=== PATIENT | female | born 1965 | race Caucasian/White ===

== ENCOUNTER 2018-12-13 08:48 | Day surgery (SDC) | payer BC ==
[2018-12-13] VITALS (10 sets, daily range): BP systolic 86–122; BP diastolic 54–66; PULSE 52–75; RESP 11–20
[~2018-12-13] VITALS: Ht 152.4 cm; Wt 79.0 kg
[~2018-12-13 08:48] MED LIST: ACETAMINOPHEN 500 MG TAB PO ONE; CEFAZOLIN 1 GM INJ ONE; PROPOFOL 200 MG INJ ONE; SOD CHLORIDE 0.9% 1,000 ML IV SCH
[2018-12-13] MEDS ORDERED: METF500T24 PO (09:42)
[2018-12-13] MEDS ORDERED: ERGO500013 PO (09:43)
[2018-12-13] MEDS ORDERED: CYAN100T PO (09:43)
--- NOTE | 2018-12-13 10:42 | PREAC ---
Date/Time of Note Date/Time of Note DATE: 12/13/18 TIME: 10:41 Anesthesia Eval and Record Evaluation Time Pre-Procedure Interview DATE: 12/13/18 TIME: 10:41 Age 52 Sex female NPO: 8 hrs Preoperative diagnosis R pretibial mass Planned procedure R mass removal pretibial Past Medical History Past Medical History: Includes Endo: Diabetes GI: Morbid obesity Surgery & Anesthesia Issues No known issue Meds Anticoagulation: No Beta Susi within 24 hr: No Reason Beta Susi not given: Pt. not on B-Susi Reported Medications Cyanocobalamin* (Vitamin B12*) 100 Mcg Tab, 100 MCG PO DAILY, TAB 12/13/18 Ergocalciferol (Vitamin D2) (VITAMIN D2) 50,000 Unit Capsule, [address] UNIT PO EVERY SUNDAY, CAP 12/13/18 Metformin Hcl* (Metformin Hcl*) 500 Mg Tablet, 500 MG PO AC LUNCH, #90 TAB 12/13/18 Current Medications Sodium Chloride 1,000 ml @ 75 mls/hr [id number] IV ; Start 12/13/18 at 07:00 Meds reviewed: Yes Allergies Coded Allergies: No Known Allergies (Verified Allergy, Unknown, 12/13/18) Allergies Reviewed: Yes Labs/Studies Labs Reviewed: Reviewed by anesthesiologist test: Negative Studies: ECG Pre-procedure Exam Last vitals Vital Signs Date Temp Pulse Resp B/P (MAP) Pulse Ox O2 O2 Flow FiO2 Time Delivery Rate 12/13/18 98.0 56 18 122/66 99 Room Air 10:15 (84) Airway: Adequate mouth opening, Adequate thyromental dist Mallampati: Mallampati II Teeth: Normal Lung: Normal Heart: Normal ASA Physical Status ASA physical status: 2 Emergency: None Planned Anesthetic General/MAC: Mask, ETT, MAC Pre-operative Attestations Prior to commencing anesthesia and surgery, the patient was re-evaluated, there was verification of: *The patient's identity *The results of appropriate recent lab work and preoperative vital signs *The above evaluation not changing prior to induction *Anesthetic plan, risk benefits, alternative and complications discussed with patient/family; questions answered; patient/family understands, accepts and wishes to proceed. JERONIMO SMITH Dec 13, 2018 10:42
[2018-12-13] MEDS ORDERED: MIDAZOLAM 1 MG/ML 2 ML INJ ONE (10:57)
[2018-12-13] MEDS ORDERED: DIPHENHYDRAMINE 50 MG INJ IV PRN (11:00)
[2018-12-13] MEDS ORDERED: FENTAnyl 50 MCG/ML VIAL IV PRN ×2 (11:00)
[2018-12-13] MEDS ORDERED: METOCLOPRAMIDE 10 MG INJ IV PRN (11:00)
[2018-12-13] MEDS ORDERED: ALBUTEROL 0.083% (NEB) 2.5 MG/3 ML AMP HHN PRN (11:00)
[2018-12-13] MEDS ORDERED: ONDANSETRON 4 MG INJ IV PRN (11:00)
[2018-12-13] MEDS ORDERED: HYDROmorphONE 1 MG/5 ML IV SYRINGE IV PRN ×3 (11:00)
[2018-12-13] MEDS ORDERED: MEPERIDINE 25 MG INJ IV PRN (11:00)
[2018-12-13] MEDS ORDERED: LIDOCAINE 100 MG SYRINGE ONE (11:01)
[2018-12-13] MEDS ORDERED: METOCLOPRAMIDE 10 MG INJ ONE (11:01)
[2018-12-13] MEDS ORDERED: BUPIVACAINE 0.5%/EPI (SDV) 30 ML INJ ONE (11:05)
--- NOTE | 2018-12-13 11:53 | SIPON ---
Date/Time of Note Date/Time of Note DATE: 12/13/18 TIME: 11:51 Operative Report Preoperative Diagnosis Right pretibial skin lesion Postoperative Diagnosis Same Operation/Procedure Performed Excision of right pretibial skin lesion and local skin flap advancement closure Surgeon see signature line administrative services assistant Dr Lubin Anesthesia: general Estimated blood loss: 10 - 50 ml's Transfusion Required none Specimen Right pretibial skin lesion Grafts/Implants none Complications none EVARISTO AVILEZ MD Dec 13, 2018 11:53
--- NOTE | 2018-12-13 12:46 | PAC ---
Date/Time of Note Date/Time of Note DATE: 12/13/18 TIME: 12:46 Post-Anesthesia Notes Post-Anesthesia Note Last documented vital signs Vital Signs Date Temp Pulse Resp B/P (MAP) Pulse Ox O2 O2 Flow FiO2 Time Delivery Rate 12/13/18 98.0 56 16 122/66 99 Room Air 12:43 (84) Activity: WNL Respiratory function: WNL Cardiovascular function: WNL Mental status: Baseline Pain reasonably controlled: Yes Hydration appropriate: Yes Nausea/Vomiting absent: Yes JERONIMO SMITH Dec 13, 2018 12:46
--- NOTE | 2018-12-13 13:28 | OPR ---
DATE OF OPERATION: 12/13/2018 PREOPERATIVE DIAGNOSIS: Right pretibial pigmented skin lesion. POSTOPERATIVE DIAGNOSIS: Right pretibial pigmented skin lesion. PROCEDURE: Excision of right pretibial skin lesion with local skin flap advancement closure. ANESTHESIA: IV sedation with local. ANESTHESIOLOGIST: Franko Monteiro MD. SURGEON: Layton Smith MD COKE OVEN MASON: Dr. Lubin. INDICATIONS FOR PROCEDURE: The patient is a 52-year-old female who presented with enlarging nodule w ith overlying pigmentation in her right pretibial region. It was approximately 3 cm in diameter. It was symptomatic and the patient requested excision. She consented and was scheduled for surgery. DESCRIPTION OF PROCEDURE: The patient was brought to the operating theater, placed under IV sedation . The right lower extremity was prepped and draped in usual sterile fashion. After resuscitating th e skin tension, decision was made that the best approach would be a transverse incision. Therefore, a transverse incision was made in elliptical fashion around the skin nodule for a length of approxima tely 5 cm. The specimen was then elevated and transected from the underlying subcutaneous tissue usi ng cautery. Specimen was removed and sent for pathologic analysis. Residual bleeding was controlled with cautery to facilitate closure. Both superior and inferior skin flaps were created using cauter y for a distance of at least 4 cm in either direction. The skin flaps were rotated together and then a retention suture of 0 Prolene suture was placed in the middle of the incision in simple fashion. Several 2-0 nylon sutures were then placed in vertical mattress fashion to accomplish final skin appr oximation and this concluded the procedure. The patient tolerated the procedure well. Estimated blo od loss was 10 mL. There were no complications and a sterile dressing was applied and the patient wa s transported in stable condition to the recovery room. Dictated By: LAYTON NAVARRO/ARIANE Conf#: [id number] DID#: [id number]
--- NOTE | 2018-12-13 17:55 | RADRPT ---
Vent Rate: 47 bpm RR Interval: 0 msec OR Interval: 172 msec QRS Duration: 82 msec QT Interval: 454 msec QTC Interval: 401 msec P-R-T [place]cott: 42 - 35 - 43 degrees Marked sinus bradycardia Abnormal ECG Electronically Signed By: Kaz Ng
== END 2018-12-13 13:20 | disposition home or self-care (01) ==
LOC: SDS 08:48
PROVIDERS: ATTEND Surgery Surgical Oncology
DX: D16.21 Benign neoplasm of long bones of right lower limb (principal); E11.9 Type 2 diabetes mellitus without complications
CPT/HCPCS: 14020; 71045; 80053; 82962; 84703; 85025; 85610; 85730; 88307; 93005; J0690; J2001; J2250; J2765